=== PATIENT | male | born 1990 | race Caucasian/White ===

== ENCOUNTER 2024-04-30 10:40 | Emergency (ER) | payer BC, OTHER ==
[2024-04-30 10:55] LABS: BASOPHILS PERCENT AUTO 0.3 % (0.0-1.0); EOSINOPHILS ABSOLUTE AUTO 0.3 K/mm3 (0.0-0.4); EOSINOPHILS PERCENT AUTO 2.5 % (0.0-6.0); HEMATOCRIT 43.9 % (42.0-52.0); HEMOGLOBIN 14.5 gm/dl (14.0-18.0); IMMATURE GRAN ABSOLUTE AUTO 0.15 K/mm3 (0.00-0.05); IMMATURE GRAN PERCENT AUTO 1.3 % (0.0-0.4); LYMPHOCYTES ABSOLUTE AUTO 2.3 K/mm3 (1.0-4.8); LYMPHOCYTES PERCENT AUTO 19.5 % (24.0-44.0); MEAN CORPUSCULAR HEMOGLOBIN 26.4 pg (28.0-32.0); MEAN PLATELET VOLUME 9.7 fl (9.4-12.4); MONOCYTES ABSOLUTE AUTO 0.6 K/mm3 (0.0-0.8); MONOCYTES PERCENT AUTO 4.7 % (0.0-8.0); NEUTROPHILS ABSOLUTE AUTO 8.6 K/mm3 (1.8-7.7); NEUTROPHILS PERCENT AUTO 71.7 % (41.0-71.0); PLATELET COUNT,PLT 299 K/mm3 (150-400); RED BLOOD CELL COUNT 5.49 M/mm3 (4.52-5.90); WHITE BLOOD CELL COUNT,WBC 11.94 K/mm3 (3.9-11.3)
[2024-04-30] MEDS: Iopamidol 612 MG/ML 30 ML SDV IVPUSH ONE (11:09)
[2024-04-30] MEDS: Sodium Chloride 0.9% 10 ML Syringe FLUSH PRN (11:09)
[2024-04-30 11:17] LABS: A/G RATIO 0.9 (1-2); ALBUMIN 3.8 g/dl (3.4-5.0); BILIRUBIN TOTAL 0.4 mg/dL (0.2-1.0); BUN/CREATININE RATIO 10.9 (14-18); CALCIUM 9.6 mg/dL (8.5-10.1); CREATININE 1.1 mg/dL (0.7-1.3); EST CRCL DRUG DOSING (CG) 116.17 mL/min; PROTEIN TOTAL,TP 8.2 g/dl (6.4-8.2)
[2024-04-30] MEDS: Digoxin 500 MCG/2 ML Amp IVPUSH ONE (11:36)
[2024-04-30] MEDS: Diltiazem 25 MG/5 ML SDV IVPUSH ONE (11:36)
[2024-04-30] MEDS ORDERED: Naloxone 0.4 MG/ML SDV IVPUSH PRN (11:59)
[2024-04-30 12:08] LABS: APPEARANCE,URINE CLEAR (Clear); BILIRUBIN,URINE NEGATIVE (Negative); COLOR,URINE YELLOW (Yellow); GLUCOSE,URINE NEGATIVE (Negative); KETONES,URINE NEGATIVE (Negative); LEUKOCYTE ESTERASE,URINE NEGATIVE (Negative); NITRITE,URINE NEGATIVE (Negative); OCCULT BLOOD,URINE TRACE-INTACT (Negative); PROTEIN,URINE TRACE (Negative); UROBILINOGEN,URINE 0.2 (0.2-1.0)
[2024-04-30 12:18] LABS: BACTERIA,URINE FEW /hpf (FEW); EPITHELIAL CELLS,URINE 0-5 /hpf (0-5); HYALINE CASTS,URINE 0-5 /lpf (0-5); MUCUS,URINE FEW /hpf (FEW); RBC,URINE 0-5 /hpf (0-5); WBC,URINE 0-5 /hpf (0-5)
[2024-04-30] MEDS: Aspirin 81 MG Tab.Chew PO ONE (12:24)
[2024-04-30] MEDS: Morphine 4 MG/ML Syringe IVPUSH ONE (12:26)
[2024-04-30] MEDS: Apixaban 5 MG Tab PO ONE (12:27)
[2024-04-30] MEDS: Clopidogrel 75 MG Tab PO ONE (14:16)
[2024-04-30] MEDS: Heparin Sodium 5,000 Units/ML Vial IVPUSH ONE (14:17)
[2024-04-30] MEDS: Heparin Sodium/D5W 25,000 UNITS/500 ML BAG IV SCH (14:23)
== END 2024-04-30 14:40 | disposition home or self-care (01) ==
LOC: JD.ED 10:40
DX: I48.91 Unspecified atrial fibrillation (principal)
CPT/HCPCS: 36415; 71260; 74177; 80053; 81001; 84484; 85025; 85730; 93005; 96365; 96375; 99285; A9270; J1160; J1644; J2270; J3490; Q9967

== ENCOUNTER 2024-11-15 05:55 | Emergency (ER) | payer OTHER ==
[2024-11-15] MEDS ORDERED: Sodium Chloride 0.9% 10 ML Syringe FLUSH PRN (06:08)
[2024-11-15] MEDS: levETIRAcetam 2,000 MG in Sodium Chloride 0.9% 100 ML IV ONE (06:19)
[2024-11-15] MEDS: Sodium Chloride 0.9% 1,000 ML IV SCH (06:19)
[2024-11-15 06:28] LABS: BASOPHILS PERCENT AUTO 0.3 % (0.0-1.0); EOSINOPHILS ABSOLUTE AUTO 0.2 K/mm3 (0.0-0.4); EOSINOPHILS PERCENT AUTO 1.7 % (0.0-6.0); HEMATOCRIT 44.3 % (42.0-52.0); HEMOGLOBIN 14.5 gm/dl (14.0-18.0); IMMATURE GRAN ABSOLUTE AUTO 0.04 K/mm3 (0.00-0.05); IMMATURE GRAN PERCENT AUTO 0.4 % (0.0-0.4); LYMPHOCYTES ABSOLUTE AUTO 1.6 K/mm3 (1.0-4.8); LYMPHOCYTES PERCENT AUTO 15.1 % (24.0-44.0); MEAN CORPUSCULAR HEMOGLOBIN 26.4 pg (28.0-32.0); MEAN CORPUSCULAR HGB CONC 32.7 g/dl (32.0-36.0); MEAN CORPUSCULAR VOLUME 80.5 fl (83.0-99.0); MEAN PLATELET VOLUME 9.2 fl (9.4-12.4); MONOCYTES ABSOLUTE AUTO 0.6 K/mm3 (0.0-0.8); MONOCYTES PERCENT AUTO 5.8 % (0.0-8.0); NEUTROPHILS ABSOLUTE AUTO 8.1 K/mm3 (1.8-7.7); NEUTROPHILS PERCENT AUTO 76.7 % (41.0-71.0); PLATELET COUNT,PLT 303 K/mm3 (150-400); WHITE BLOOD CELL COUNT,WBC 10.59 K/mm3 (3.9-11.3)
[2024-11-15 06:53] LABS: A/G RATIO 0.8 (1-2); ALBUMIN 3.8 g/dl (3.4-5.0); ANION GAP 18.6 (5-15); BILIRUBIN TOTAL 0.2 mg/dL (0.2-1.0); BUN/CREATININE RATIO 14.5 (14-18); CALCIUM 9.1 mg/dL (8.5-10.1); CREATININE 1.1 mg/dL (0.7-1.3); EST CRCL DRUG DOSING (CG) 116.17 mL/min; MAGNESIUM 2.5 mg/dL (1.8-2.4); POTASSIUM,K 4.6 mEq/L (3.5-5.1); PROTEIN TOTAL,TP 8.3 g/dl (6.4-8.2)
[2024-11-15] MEDS: Acetaminophen 325 MG Tab PO ONE (07:01)
== END 2024-11-15 07:52 | disposition home or self-care (01) ==
LOC: JD.ED 05:55
DX: R56.9 Unspecified convulsions (principal); I48.91 Unspecified atrial fibrillation; Z86.16 Personal history of COVID-19; Z79.899 Other long term (current) drug therapy
CPT/HCPCS: 36415; 70450; 80053; 80307; 83735; 84484; 85025; 93005; 96361; 96374; 99285; A9270; J1953; J7030; 93010; 99284